=== PATIENT | female | born 1985 ===

== ENCOUNTER 2018-06-23 07:03 | Day surgery (SDC) | payer SELFPAY ==
[2018-06-20 08:14] VITALS: BMI 24.5
[2018-06-23] MEDS ORDERED: Rocuronium 10 mg/ml (5 ml) ONE (07:21)
[2018-06-23] MEDS ORDERED: Propofol 10 mg/ml Inj (20 ML) ONE (07:21)
[2018-06-23] MEDS ORDERED: Lidocaine 4% (Laryng-O-Jet) Kit MM ONE (07:21)
[2018-06-23] MEDS ORDERED: Lidocaine 1% 5ml Abboject ONE (07:21)
[2018-06-23] MEDS ORDERED: Neostigmine 1:1000 (1 mg/ml) Inj ONE (07:21)
[2018-06-23] MEDS ORDERED: Midazolam 2 MG/2 ML VIAL ONE (07:21)
[2018-06-23 08:37] VITALS: RESP 18
[2018-06-23] MEDS ORDERED: Lactated Ringer's 1,000 ML IV ONE (08:50)
[2018-06-23 09:24] LABS: BASO % 0.7 % (0.0-2.0); EOS # 0.1 K/uL (0.0-0.7); EOS % 1.3 % (0.0-4.0); HEMOGLOBIN 13.1 g/dL (12.0-16.0); LYMPH # 1.2 K/uL (1.0-4.3); LYMPH % 21.7 % (20.0-40.0); MEAN CELL VOLUME 90.7 fl (81.0-99.0); MEAN CORPUSCULAR HGB CONC 34.2 g/dL (33.0-37.0); MEAN PLATELET VOLUME 9.3 fl (7.2-11.7); MONO # 0.4 K/uL (0.0-0.8); MONO % 7.5 % (0.0-10.0); NEUT # 3.7 K/uL (1.8-7.0); NEUT % 68.8 % (50.0-75.0); RBC 4.23 Mil/uL (3.80-5.20); RED CELL DISTRIBUTION WIDTH 12.6 % (11.5-14.5); WHITE BLOOD COUNT 5.4 K/uL (4.8-10.8)
[2018-06-23] MEDS ORDERED: Succinylcholine Chloride 20 mg/ml Syr (5 ml) IV ONE (09:48)
[2018-06-23] MEDS ORDERED: Oxycodone/Acetaminophen 5/325 mg Tab PO PRN (11:00)
--- NOTE | 2018-06-23 11:00 | PCM.SURG1 ---
Surgeon's Initial Post Op Note - Surgeon's Notes Surgeon: Dr. Hamilton Torpedo Shooter: Dr. Tonio Dia Type of Anesthesia: General Endo Pre-Operative Diagnosis: cholelithiasis Operative Findings: chronically inflammed gallbladder Post-Operative Diagnosis: cholelithiasis, chronic cholecystitis Operation Performed: laparoscopic cholecystectomy Specimen/Specimens Removed: gallbladder Estimated Blood Loss: EBL {In ML}: 20 Blood Products Given: N/A Drains Used: No Drains Post-Op Condition: Good Date of Surgery/Procedure: 06/23/18 Time of Surgery/Procedure: 09:00
--- NOTE | 2018-06-23 11:02 | CP.SDSHP ---
Same Day Surgery H & P - Allergies Allergies: Allergies No Known Allergies Allergy (Verified 06/23/18 09:09) - Physical Exam Vital Signs: Vital Signs 06/23/18 06/23/18 08:00 09:03 Temperature 97.8 F Pulse Rate 89 89 Respiratory 18 Rate Blood Pressure 124/76 O2 Sat by Pulse 100 Oximetry Short Stay Discharge - Short Stay Discharge Admitting Diagnosis/Reason for Visit: k80.20 Disposition: HOME/ ROUTINE Follow-up: Dr. Hamilton in 1-2 weeks Instructions: Cholecystectomy, Laparoscopic Surgery Additional Instructions (Diet, Activity): Can shower, take pain meds as prescribed no lifting greater than 15 lbs until cleared Progress Note/Discharge Note with Instructions: Admitted through [facility] for lap ami. Patient tolerated procedure well and monitored in PACU until d/c criteria met.
[2018-06-23] MEDS ORDERED: Lactated Ringer's 1,000 ML IV SCH (11:15)
[2018-06-23] MEDS: HYDROmorphone 0.5 mg/0.5 ml ISec IVP PRN ×3 (11:30→11:50)
[2018-06-23 14:36] VITALS: O2SAT 98
[2018-06-23 16:38] VITALS: BP 128/76; PULSE 82; TEMP 98.2
--- NOTE | 2018-06-23 22:03 | OP ---
PROCEDURE DATE: 06/23/2018 PREOPERATIVE DIAGNOSIS: Symptomatic cholelithiasis. POSTOPERATIVE DIAGNOSIS: Symptomatic cholelithiasis. PROCEDURE: Laparoscopic cholecystectomy. SURGEON: Sheron Hamilton MD ASSISTANTS: Sanju Dia DO, PGY 3 and PGY-4 ANESTHESIOLOGIST: Price oCuch MD ANESTHETIC USED: General anesthetic. SUMMARY OF EVENTS AND FINDINGS: No intraoperative complications. SPECIMEN SENT TO PATHOLOGY: Gallbladder. DRAINS: No drains were placed. DISPOSITION: PACU. CLINICAL NOTE: Mrs. Watson Mauro is a 33-year-old woman who was evaluated by Dr. Hamilton in clinic for symptoms of symptomatic cholelithiasis and biliary colic. There was sonographic evidence of gallstones. Surgery was indicated and recommended. The risks, benefits, alternatives, and rationale of surgery were explained and documented in Dr. Hamilton's clinic note including the risks of not operating. Informed consent was obtained by Dr. Hamilton for laparoscopic, possible open cholecystectomy, which is performed today. DESCRIPTION OF PROCEDURE: The patient was brought to the operating room where a surgical safety checklist was performed. Preoperatively, 1 g of IV Ancef was administered. General anesthesia was induced. Fernandez catheter was not inserted. Arms were not tucked. In supine position, the abdomen was prepped and draped in a sterile fashion. An infraumbilical midline incision was made and carried down to the fascia, which was divided, exposing the peritoneal cavity. Closed technique was used to enter the peritoneal cavity with a Veress needle, which was used to establish our pneumoperitoneum. The laparoscope was inserted into the abdomen under direct vision via Visiport. Subsequently, the following ports were inserted under direct visualization. In a typical fashion, an 11-mm epigastric port and two 5-mm ports along the right costal margin were placed. The peritoneal cavity was inspected, and no abnormalities were found. The patient was then placed in reverse Trendelenburg position with the right side up. Omental attachments to the gallbladder were gently swept away until an atraumatic grasper could be used to retract the fundus of the gallbladder superiorly over the dome of the liver. Filmy adhesions between the gallbladder and omentum were also lysed bluntly. The infundibulum was identified and subsequently retracted laterally towards the right lower quadrant using another grasper. This maneuver exposed Calot's triangle, the peritoneum overlying the gallbladder, and infundibulum was incised with electrocautery anteriorly. Then, the posterior peritoneum was dissected bluntly. The triangle was dissected to expose the cystic artery as well as the lower third of the cystic plate and cystic duct. Once these structures were carefully identified, the cystic duct was divided first. Then, further dissection of the triangle was completed. Once it was determined that the only structure remaining was the cystic artery, it was doubly clipped and divided. The electrocautery was then used to separate the peritoneal attachments between the gallbladder and its bed and the liver. The gallbladder fossa and cystic artery were inspected to ensure no bleeding. Hemostasis was achieved with electrocautery. There was no leakage of bile from the cystic stump. The gallbladder once freed was placed in an endoscopic retrieval bag, and it was easily removed from the abdomen to the infragastric port. The specimen was sent to Pathology. The fascia in the infraumbilical ports was approximated using 0 Vicryl sutures in a [id number] fashion. All incisions were closed using 4-0 Biosyn sutures in an interrupted subcuticular fashion. The operative field was cleaned and dried, and Dermabond was applied over all four incision sites. There were no intraoperative complications, and estimated blood loss was 10 mL. All instrument and sponge counts were correct. Surgical debridement was performed. The patient was extubated and transferred to PACU in stable condition. Sanju Dia DO Sheron Hamilton MD
== END 2018-06-23 18:00 | disposition home or self-care (01) ==
LOC: H.OPSURG 07:03
PROVIDERS: ATTEND Specialist
DX: K80.10 Calculus of gallbladder with chronic cholecystitis without obstruction (principal)
CPT/HCPCS: 36415; 47562; 85025; 86850; 86900; 88304; J0690; J1170; J1885; J2250; J2704; J2710; J2765; J3010; J7120